=== PATIENT | male | born 1940 | race Caucasian/White ===

== ENCOUNTER 2018-10-23 11:46 | Emergency (ER) | payer MEDICARE ==
[~2018-10-23] VITALS: Ht 167.6 cm; Wt 91.0 kg
[2018-10-23] MEDS ORDERED: LEVO25TA4 PO (11:56)
[2018-10-23] MEDS ORDERED: DOXA4TAB3 PO (11:56)
[2018-10-23] MEDS ORDERED: LISI-167 PO (11:56)
[2018-10-23] MEDS ORDERED: RIVA20TA PO (11:56)
[2018-10-23] MEDS ORDERED: DILT120C64 PO (11:56)
[2018-10-23] MEDS ORDERED: FINA5TAB4 PO (11:56)
[2018-10-23] MEDS ORDERED: ATOR20TA37 PO (11:56)
[2018-10-23 12:16] VITALS: BP 98/74
--- NOTE | 2018-10-23 12:28 | NUR ---
[facility] ([facility]) ACCEPTED TRANSFER OR PT, REPORT BY DR PENA TO ACCEPTING MD (DR TERAN) IN [facility] ED.
[2018-10-23] MEDS ORDERED: SODIUM CHLORIDE 0.9% 1,000ML IVBOLUS ONE (12:30)
[2018-10-23 12:32] LABS: BASOPHILS # (AUTO) 0.04 x10^3/uL (0-0.1); BASOPHILS % (AUTO) 0 % (0-1); EOSINOPHILS # (AUTO) 0.05 x10^3/uL (0-0.4); EOSINOPHILS % (AUTO) 0 % (1-7); LYMPHOCYTES # (AUTO) 1.07 x10^3/uL (1-3.4); LYMPHOCYTES % (AUTO) 9 % (22-44); MD NO; MEAN CORPUSCULAR HEMOGLOBIN 29.7 pg (27.5-34.5); MEAN CORPUSCULAR HGB CONC 32.8 g/dL (33.2-36.2); MEAN CORPUSCULAR VOLUME 90.6 fL (81-97); MEAN PLATELET VOLUME 8.1 fL (7.4-10.4); MONOCYTES # (AUTO) 0.61 x10^3/uL (0.2-0.8); MONOCYTES % (AUTO) 5 % (2-9); NEUTROPHILS # (AUTO) 10.43 x10^3/uL (1.8-6.8); NEUTROPHILS % (AUTO) 86 % (42-75); PLATELET COUNT 356 x10^3/uL (130-400); RED BLOOD COUNT 4.06 x10^6/uL (4.38-5.82); RED CELL DISTRIBUTION WIDTH 13.7 % (9.4-14.8)
[2018-10-23 12:37] LABS: INTERNATIONAL NORMALIZED RATIO 1.08 (0.93-1.1); PROTHROMBIN TIME 11.3 Seconds (9.6-11.5)
[2018-10-23 12:38] LABS: ALBUMIN 3.2 g/dL (3.4-5.0); ANION GAP 3 mmol/L (5-15); CALCIUM 8.5 mg/dL (8.5-10.1); CHLORIDE 107 mmol/L (98-107); CREATININE 1.23 mg/dL (0.7-1.3)
--- NOTE | 2018-10-23 12:39 | NUR ---
LATE ENTRY: PT BIB EMS FROM HOME 10 DAYS POST TRAUMATIC FALL. PT SLIPPED ON ICE AND FELL ONTO SNOW SHOVEL HANDLE WITH RIGHT BACK. PT ON ARRIVAL HAS CENTRAL CYNOSIS ON LIPS AND IS BREATHING SHALLOW, PT PLACED ON NASAL CANNULA AND CYNOSIS RESOLVED. PT HAS LOWER RIGHT FLAIL CHEST INJURY. PT ALSO HAS ABSENT LUNG SOUNDS IN LOWER RIGHT LUNG REGION. THIS RN IMMEDIATELY COMPLETED A EKG, PLACED LARGE BORE PIV 16G IN RAC, CONNECTED TO ALL MONITORS. PT DENIES LOSS OF LOC BUT HAS HAD DIZZY SPELLS AT HOME. 500CC BOLUS STARTED FOR HOTN THAT MD PENA AWARE OF. PT HAS NO OTHER SIGNS OF TRUAMA OR ACUTE INJURY. CENTRAL PULSES ARE INTACT AND IS A/OX4 AND ABLE TO AMBULATE WITH DIFFICULTY.
--- NOTE | 2018-10-23 12:44 | NUR ---
PT TO BE TRANSFERRED TO [facility] FOR POSIBLE TRAUMA SURGERY.
--- NOTE | 2018-10-23 13:02 | NUR ---
PER SWETA (RTC)- OK TO TRANSFER PT DIRECTLY TO [facility] ED AT THIS TIME.
--- NOTE | 2018-10-23 13:12 | NUR ---
MICHELL CoxJANENE) CALLED FOR TRANSPORT.
--- NOTE | 2018-10-23 13:18 | NUR ---
report to purchasing engineer rafael, transfer to [facility] report to brit nurse discharge at [facility].
== END 2018-10-23 13:21 | disposition short-term general hospital (02) ==
LOC: ED 12:22
DX: S22.41XA Multiple fractures of ribs, right side, initial encounter for closed fracture (principal); I48.91 Unspecified atrial fibrillation; I10 Essential (primary) hypertension; E03.9 Hypothyroidism, unspecified; W19.XXXA Unspecified fall, initial encounter; Y93.89 Activity, other specified; Y92.89 Other specified places as the place of occurrence of the external cause; Y99.8 Other external cause status
CPT/HCPCS: 36415; 71045; 80048; 82040; 85025; 85610; 85730; 93005; 99291; J7030

== ENCOUNTER → 2020-01-10 | Outpatient (CLI) | payer MEDICARE ==
[~2020-01-10] MED LIST: ATOR20TA37 PO; DILT120C64 PO; DOXA4TAB3 PO; FINA5TAB4 PO; LEVO25TA4 PO; LISI-167 PO; RIVA20TA PO
== END | disposition home or self-care (01) ==
LOC: CFH 09:35
PROVIDERS: ATTEND Internal Medicine Cardiovascular Disease
DX: I08.0 Rheumatic disorders of both mitral and aortic valves (principal); I10 Essential (primary) hypertension; I48.91 Unspecified atrial fibrillation; E78.5 Hyperlipidemia, unspecified; Z79.891 Long term (current) use of opiate analgesic
CPT/HCPCS: 93306